=== PATIENT | female | born 1945 | race Caucasian/White ===

== ENCOUNTER → 2016-07-13 | Outpatient (CLI) | payer MEDICARE, OTHER ==
--- NOTE | 2016-07-14 10:17 | MM ---
Reason for exam: screening (asymptomatic). Last mammogram was performed 1 year ago. History: Patient is postmenopausal. Physical Findings: A clinical breast exam by your physician is recommended on an annual basis and results should be correlated with mammographic findings. MG 3D Screening Mammo W/Cad Bilateral CC and MLO view(s) were taken. Prior study comparison: July 12, 2015, bilateral MG screening mammo w CAD. June 20, 2014, left breast MG work up mamm w CAD LT. June 13, 2014, bilateral MG screening mammo w CAD. May 24, 2013, bilateral digital screening mammo w/CAD. February 11, 2012, bilateral digital screening mammo w/CAD. There are scattered fibroglandular densities. No significant changes when compared with prior studies. ASSESSMENT: Benign, BI-RAD 2 RECOMMENDATION: Routine screening mammogram of both breasts in 1 year.
== END | disposition home or self-care (01) ==
LOC: RADMAMWWP 08:03
PROVIDERS: ATTEND Family Medicine
DX: Z12.31 Encounter for screening mammogram for malignant neoplasm of breast (principal)
CPT/HCPCS: 77063; G0202

== ENCOUNTER → 2017-07-22 | Outpatient (CLI) | payer MEDICARE, OTHER ==
--- NOTE | 2017-07-23 08:20 | MM ---
Reason for exam: screening (asymptomatic). Last mammogram was performed 1 year ago. History: Patient is postmenopausal. Physical Findings: A clinical breast exam by your physician is recommended on an annual basis and results should be correlated with mammographic findings. MG 3D Screening Mammo W/Cad Bilateral CC and MLO view(s) were taken. Prior study comparison: July 13, 2016, bilateral MG 3d screening mammo w/cad. July 12, 2015, bilateral MG screening mammo w CAD. There are scattered fibroglandular densities. There is no discrete abnormality. No significant changes when compared with prior studies. ASSESSMENT: Negative, BI-RAD 1 RECOMMENDATION: Routine screening mammogram of both breasts in 1 year.
== END | disposition home or self-care (01) ==
LOC: RADMAMWWP 13:15
PROVIDERS: ATTEND Family Medicine
DX: Z12.31 Encounter for screening mammogram for malignant neoplasm of breast (principal)
CPT/HCPCS: 77063; 77067

== ENCOUNTER → 2017-12-01 | Outpatient (CLI) | payer MEDICARE, OTHER ==
[2017-12-01 12:02] LABS: Blood Urea Nitrogen 13 mg/dL (7-17)
--- NOTE | 2017-12-01 13:51 | CT ---
EXAMINATION TYPE: CT chest w con DATE OF EXAM: 12/01/2017 COMPARISON: None at this institution. HISTORY: Nodule CT DLP: 516 mGycm. Automated Exposure Control for Dose Reduction was Utilized. TECHNIQUE: CT scan of the thorax is performed following with IV Contrast, patient injected with 100 mL of Isovue 300. FINDINGS: LUNGS: There is bibasilar moderate linear scarring and/or atelectasis. There are scattered micronodul es and nodular densities bilaterally in the lower lungs. There is 7 x 4 mm right midlung groundglass nodule axial image 31 and smaller 6 x 4 mm groundglass nodule axial image 30 which are largest identi fied nodules. There is no pleural effusion or pneumothorax seen bilaterally. The tracheobronchial tr ee is patent. MEDIASTINUM: There are no greater than 1 cm hilar or mediastinal lymph nodes. No cardiomegaly or pe ricardial effusion is seen. Stable small hiatal hernia. OTHER: Hemangioma L1 vertebra is noted there is additional hemangioma involving the T5 vertebra. Slig ht S-shaped scoliosis with mild to moderate multilevel spurring is present. IMPRESSION: Small bibasilar nodules most prominent right middle lobe as detailed above. Correlation w ith old outside CT advised to assess interval change and follow-up.
== END | disposition home or self-care (01) ==
LOC: RADCTMAIN 11:11
PROVIDERS: ATTEND Family Medicine
DX: R91.8 Other nonspecific abnormal finding of lung field (principal)
CPT/HCPCS: 82565; 84520; 71260; 36415; Q9967

== ENCOUNTER → 2017-12-25 | Outpatient (CLI) | payer MEDICARE, OTHER ==
--- NOTE | 2017-12-27 20:57 | PE ---
EXAMINATION TYPE: PET CT fusion skull to thigh DATE OF EXAM: 12/25/2017 CLINICAL HISTORY: 72-year-old female initial staging lung cancer, diagnosed 12/01/2017. TECHNIQUE: Following the intravenous administration of 12.32 mCi of F-18 FDG, whole body images are performed from the skull base to the midthigh. Images are reviewed on the computer in the coronal, axial, and sagittal planes. Reconstructed rotating images are created on independent workstation and reviewed on the computer. A localization and attenuation correction CT is performed in conjunction with the PET scan. Glucose level: 102 mg/dL CTDI: 5.04 mGy DLP: 388.98 mGy-cm COMPARISON: Correlation CT chest 12/01/2017. FINDINGS: PET: Physiologic activity along the region of the lingual tonsils. Otherwise, physiologic FDG uptake in th e neck. Pulmonary nodules along the minor fissure measuring up to 5 mm. These are too small for adequate PET characterization. Micronodules previously seen at the lung bases measuring 1 or 2 mm are not appreciable on the present attenuation correction CT images. Average liver SUV 2.5. Variable mild bowel uptake. Otherwise, physiologic FDG uptake within the abdomen and pelvis. Variable mild FDG uptake throughout the spine such as L4-L5 where there is a grade 1, nearly grade 2 anterolisthesis suggestive of degenerative uptake. ATTENUATION CORRECTION CT: Visualized paranasal sinuses are clear. No cervical lymphadenopathy identified. Heart upper limits of normal in size without pericardial effusion. Upper descending thoracic aorta b orderline ectatic at 3.0 cm. Conventional arch vessel branching anatomy. Mediastinal lymph nodes annita ure up to 6 mm in the paratracheal region. No thoracic lymphadenopathy by CT size criteria. Enlarged main right and left pulmonary arteries are 2.9 cm each suggesting underlying pulmonary arterial hyper tension. No consolidation or pleural effusion. There is prominent dependent atelectasis in the lungs with ret icular densities in the lower lungs and mild groundglass that could represent some interstitial fibro sis. Small hiatal hernia. Bilateral extrarenal pelves. No dilated small bowel, free fluid, or free air. M oderate stool burden. Left-sided colonic diverticulosis greatest in the sigmoid colon. No pericolonic inflammatory change. Multiple pelvic phleboliths. Circumferential bladder wall thickening may relate to nondistention or c ystitis. Uterus and ovaries are visualized. No abnormal fluid collection in the pelvis or pelvic lymp hadenopathy. IMPRESSION: 1. A couple 5 mm pulmonary nodules along the minor fissure are too small for adequate PET characteriz ation. 6 month follow-up CT recommended to reassess. 2. Micronodules measuring 1 or 2 mm at the lung bases are not appreciable on the current attenuation correction CT. These can also be reassessed at the 6 month follow-up. 3. Pulmonary arterial hypertension, possible fibrotic changes in the lower lungs, small hiatal hernia , left-sided colonic diverticulosis, and circumferential bladder wall thickening which may relate to nondistention or cystitis.
== END | disposition home or self-care (01) ==
LOC: RADPETMAIN 07:54
PROVIDERS: ATTEND Family Medicine
DX: C34.2 Malignant neoplasm of middle lobe, bronchus or lung (principal); R91.8 Other nonspecific abnormal finding of lung field; I27.21 Secondary pulmonary arterial hypertension
CPT/HCPCS: 78815; A9552

== ENCOUNTER → 2018-08-16 | Outpatient (CLI) | payer MEDICARE, OTHER ==
--- NOTE | 2018-08-16 09:10 | CT ---
EXAMINATION TYPE: CT chest w con DATE OF EXAM: 08/16/2018 COMPARISON: 12/01/2017 HISTORY: 72-year-old female localized swelling, mass and lump, abnormal PET Scan TECHNIQUE: Contiguous axial scanning of the chest after the administration of 100 mL of Isovue 300. Coronal/sagittal reconstructions performed. CT DLP: 289.1mGycm. Automatic exposure control utilized for a dose reduction. FINDINGS: Heart normal size without pericardial effusion. Mild ectasia upper descending thoracic aorta and 2.7 cm. Conventional arch vessel branching anatomy. Large caliber to the main right and left pulmonary arteries and 3.0 and 2.5 cm, respectively, suggest ing underlying pulmonary arterial hypertension. No thoracic lymphadenopathy by CT size criteria. A couple 5 to 6 mm pulmonary nodules along the right minor fissure are unchanged. Reticular and inter stitial changes in the lung bases with minimal bronchiectasis is unchanged. Previously described micr onodules at the lung bases are not as well defined. No consolidation or pleural effusion. Visualized upper abdomen shows no gross abnormality. Bones: Accentuated midthoracic kyphosis with associated mild degenerative disc disease. IMPRESSION: 1. A couple 5 to 6 mm pulmonary nodules along the right minor fissure are unchanged for nearly 9 dustin hs. Additional follow-up can be performed at 15 months which will establish 2 years of stability and help support a benign etiology. 2. Previously seen bibasilar micronodules are not as well-defined. There are basilar interstitial ret iculations and scarring with mild bibasilar bronchiectasis suggesting some underlying interstitial fi brosis. 3. Correlate for underlying pulmonary arterial hypertension.
== END | disposition home or self-care (01) ==
LOC: RADCTMAIN 06:02
PROVIDERS: ATTEND Family Medicine
DX: J47.9 Bronchiectasis, uncomplicated (principal); J98.4 Other disorders of lung; R91.8 Other nonspecific abnormal finding of lung field
CPT/HCPCS: 82565; 84520; 71260; 36415; Q9967

== ENCOUNTER → 2018-11-10 | Outpatient (CLI) | payer MEDICARE, OTHER ==
--- NOTE | 2018-11-11 11:32 | MM ---
Reason for exam: screening (asymptomatic). Last mammogram was performed 1 year and 4 months ago. History: Patient is postmenopausal. Physical Findings: A clinical breast exam by your physician is recommended on an annual basis and results should be correlated with mammographic findings. MG 3D Screening Mammo W/Cad Bilateral CC and MLO view(s) were taken. Prior study comparison: July 22, 2017, bilateral MG 3d screening mammo w/cad. July 13, 2016, bilateral MG 3d screening mammo w/cad. There are scattered fibroglandular densities. There is no discrete abnormality. No significant changes when compared with prior studies. ASSESSMENT: Negative, BI-RAD 1 RECOMMENDATION: Routine screening mammogram of both breasts in 1 year.
== END | disposition home or self-care (01) ==
LOC: RADMAMWWP 09:01
PROVIDERS: ATTEND Family Medicine
DX: Z12.31 Encounter for screening mammogram for malignant neoplasm of breast (principal)
CPT/HCPCS: 77063; 77067

== ENCOUNTER → 2019-11-14 | Outpatient (CLI) | payer MEDICARE, OTHER ==
--- NOTE | 2019-11-15 08:38 | MM ---
Reason for exam: screening (asymptomatic). Last mammogram was performed 1 year ago. History: Patient is postmenopausal. Physical Findings: A clinical breast exam by your physician is recommended on an annual basis and results should be correlated with mammographic findings. MG 3D Screening Mammo W/Cad Bilateral CC and MLO view(s) were taken. Prior study comparison: November 10, 2018, bilateral MG 3d screening mammo w/cad. July 22, 2017, bilateral MG 3d screening mammo w/cad. There are scattered fibroglandular densities. There are benign appearing vascular calcifications in the right breast. There is chronic nodularity in the right breast. There is no discrete abnormality. ASSESSMENT: Benign, BI-RAD 2 RECOMMENDATION: Routine screening mammogram of both breasts in 1 year.
== END | disposition home or self-care (01) ==
LOC: RADMAMWWP 09:02
PROVIDERS: ATTEND Family Medicine
DX: Z12.31 Encounter for screening mammogram for malignant neoplasm of breast (principal)
CPT/HCPCS: 77063; 77067

== ENCOUNTER → 2020-11-27 | Outpatient (CLI) | payer MEDICARE, OTHER ==
--- NOTE | 2020-12-02 13:34 | MM ---
Reason for exam: screening (asymptomatic). Last mammogram was performed 1 year ago. History: Patient is postmenopausal. Physical Findings: A clinical breast exam by your physician is recommended on an annual basis and results should be correlated with mammographic findings. MG 3D Screening Mammo W/Cad Bilateral CC and MLO view(s) were taken. Prior study comparison: November 14, 2019, bilateral MG 3d screening mammo w/cad. November 10, 2018, bilateral MG 3d screening mammo w/cad. There are scattered fibroglandular densities. There is a small chronic nodularity in the left breast. There is no discrete abnormality. ASSESSMENT: Negative, BI-RAD 1 RECOMMENDATION: Routine screening mammogram of both breasts in 1 year.
== END | disposition home or self-care (01) ==
LOC: RADMAMWWP 15:40
PROVIDERS: ATTEND Family Medicine
DX: Z12.31 Encounter for screening mammogram for malignant neoplasm of breast (principal); Z78.0 Asymptomatic menopausal state
CPT/HCPCS: 77063; 77067

== ENCOUNTER → 2021-09-08 | Outpatient (CLI) | payer MEDICARE, OTHER ==
--- NOTE | 2021-09-08 14:34 | US ---
EXAMINATION TYPE: US venous doppler duplex LE LT DATE OF EXAM: 09/08/2021 1:18 PM COMPARISON: NONE CLINICAL HISTORY: 75-year-old female M79.672 PAIN IN LT FOOT, I80.9 PHLEBITIS AND THROMBOPHLEBITIS. L eft lower leg edema, left foot injury SIDE PERFORMED: left TECHNIQUE: The lower extremity deep venous system is examined utilizing real time linear array sonog atilio with graded compression, doppler sonography and color-flow sonography. FINDINGS: VESSELS IMAGED: Common Femoral Vein Deep Femoral Vein Greater Saphenous Vein * Femoral Vein Popliteal Vein Small Saphenous Vein * Proximal Calf Veins Posterior tibial vein (* superficial vessels) Left Leg: no evidence of DVT as visualized IMPRESSION: No evidence for DVT within the left lower extremity imaged from the groin into the calf.
== END | disposition home or self-care (01) ==
LOC: RADUSWWP 12:30
PROVIDERS: ATTEND Orthopaedic Surgery
DX: M79.672 Pain in left foot (principal); I80.9 Phlebitis and thrombophlebitis of unspecified site

== ENCOUNTER → 2022-02-17 | Outpatient (CLI) | payer MEDICARE, OTHER ==
--- NOTE | 2022-02-17 18:58 | MM ---
Reason for Exam: Screening (asymptomatic). Last mammogram was performed 1 year(s) and 2 month(s) ago. Patient History: Menarche at age 13. First Full-Term at age 18. Postmenopausal. Risk Values: Carina 5 year model risk: 1.3%. NCI Lifetime model risk: 2.6%. Prior Study Comparison: 11/10/2018 Bilateral Screening Mammogram, [facility]. 11/14/2019 Bilateral Screening Mammogram, [facility]. 11/27/2020 Bilateral Screening Mammogram, [facility]. Tissue Density: There are scattered fibroglandular densities. Findings: Analyzed By CAD. There is a tiny 4 mm circumscribed nodule that appears low density on the MLO view, not well seen on the prior exam. The characteristics suggest a tiny benign cyst. This can be reassessed in 6 months. Bilateral moles. No significant change otherwise seen. Overall Assessment: Probably benign, BI-RAD 3 Management: Diagnostic Mammogram of the right breast in 6 months. 1. For a suspected tiny 4 mm cyst, not clearly seen previously. 2. Patient should continue monthly self breast exams. 3. This exam should not preclude additional follow-up of suspicious palpable abnormalities. Electronically signed and approved by: Ivan Dominguez M.D. Radiologist
== END | disposition home or self-care (01) ==
LOC: RADMAMWWP 07:07
PROVIDERS: ATTEND Family Medicine
DX: Z12.31 Encounter for screening mammogram for malignant neoplasm of breast (principal)
CPT/HCPCS: 77063; 77067

== ENCOUNTER → 2022-08-18 | Outpatient (CLI) | payer MEDICARE, OTHER ==
--- NOTE | 2022-08-18 12:40 | CA ---
Exercise Stress Test Report Name: Carina Rucker Exam Date: 08/18/2022 09:01 Exam Location: [place] Stress Ht (in): 63 Wt (lb): 183 BSA: 1.86 Ordering Phys: Mary Santillan DO Referring Phys: Elayne Stahl PAC Technologist: Apolinar Bhakta Age: 76 Gender: F : 1945 Procedure CPT: Indications: I20.8 Angina ICD-10 Codes: Patient History: CHEST PAIN, DIFFICULTY IN BREATHING, HTN, ELEVATED CHOLESTEROL LEVELS, FAMILY HX OF HEART DISEASE Medications: REFRESH TEARS, IRBESARTAN, METOPROLOL, LIOTHYRONINE, LEVOTHYROXINE, AMLODIPINE Meds past 24 hrs: Pretest Chest Pain: STRESS TEST Ravi Protocol Exercise Duration (min:sec): 03:[address] Depressions (mm): Angina Score: Fung Score: Resting HR (bpm): 99 Peak HR (bpm): 156 Resting BP (mmHg): 160 / 90 Peak BP (mmHg): 197 / 102 MPHR: 144 Target HR: 122 % MPHR: 108 METS: 4.7 Total Dose: Peak Dose: Atropine: Double Product: 74091 BP Response: Stress Termination: Target HR Stress Symptoms: DIFFICULTY IN BREATHING,JAW/CHEST TIGHTNESS Stress Summary: ECG ANALYSIS Resting ECG: Stress ECG: CONCLUSIONS Average exercise tolerance Normal EKG in response to exercise Dr. Christopher Ferrer MD (Electronically Signed) Final Date: 18 August 2022 12:40
== END | disposition home or self-care (01) ==
LOC: RADNMMAIN 07:54
PROVIDERS: ATTEND Family Medicine
DX: I20.8 Other forms of angina pectoris (principal)
CPT/HCPCS: 93017

== ENCOUNTER → 2022-08-19 | Outpatient (CLI) | payer MEDICARE, OTHER ==
--- NOTE | 2022-08-19 07:52 | MM ---
Reason for Exam: Follow-up at short interval from prior study. Last screening mammogram was performed 6 month(s) ago. Patient History: Menarche at age 13. First Full-Term at age 18. Postmenopausal. Risk Values: Carina 5 year model risk: 1.3%. NCI Lifetime model risk: 2.6%. Prior Study Comparison: 11/14/2019 Bilateral Screening Mammogram, [facility]. 11/27/2020 Bilateral Screening Mammogram, [facility]. 02/17/2022 Bilateral MG 3D screening mammo w/cad, [facility]. Tissue Density: Right: There are scattered fibroglandular densities. Findings: Analyzed By CAD. No new suspicious masses, calcifications or distortions. Overall Assessment: Benign, BI-RAD 2 Management: Screening Mammogram of both breasts in 1 year. A clinical breast exam by your physician is recommended on an annual basis and results should be correlated with mammographic findings. This exam should not preclude additional follow-up of suspicious palpable abnormalities. Results were given to the patient verbally at the time of exam. Electronically signed and approved by: Jacobo Smalls DO
== END | disposition home or self-care (01) ==
LOC: RADMAMWWP 07:16
PROVIDERS: ATTEND Family Medicine
DX: R92.8 Other abnormal and inconclusive findings on diagnostic imaging of breast (principal); Z78.0 Asymptomatic menopausal state
CPT/HCPCS: 77065; G0279; 77061

== ENCOUNTER → 2023-02-18 | Outpatient (CLI) | payer MEDICARE, OTHER ==
--- NOTE | 2023-02-18 10:14 | MM ---
Reason for Exam: Screening (asymptomatic). Last screening mammogram was performed 12 month(s) ago. Patient History: Menarche at age 13. First Full-Term at age 18. Postmenopausal. Risk Values: Carina 5 year model risk: 1.3%. NCI Lifetime model risk: 2.4%. Prior Study Comparison: 07/13/2016 Bilateral Screening Mammogram, [facility]. 07/22/2017 Bilateral Screening Mammogram, [facility]. 11/10/2018 Bilateral Screening Mammogram, [facility]. 11/14/2019 Bilateral Screening Mammogram, [facility]. 11/27/2020 Bilateral Screening Mammogram, [facility]. 02/17/2022 Bilateral MG 3D screening mammo w/cad, [facility]. 08/19/2022 Right MG 3D diag mammo w/cad RT, [facility]. Tissue Density: There are scattered fibroglandular densities. Findings: Analyzed By CAD. There is no suspicious group of microcalcifications or new suspicious mass. Overall Assessment: Negative, BI-RAD 1 Management: Screening Mammogram of both breasts in [address] [facility] will attempt to contact patient to return for supplemental views and ultrasound if indicated. Patient should continue monthly self-breast exams. A clinical breast exam by your physician is recommended on an annual basis. This exam should not preclude additional follow-up of suspicious palpable abnormalities. Note on Carina scores and lifetime risk: 1. A Carina score greater than 3% is considered moderate risk. If this is the case, consider specialist referral to assess eligibility for a risk reducing agent. 2. If overall lifetime risk for the development of breast cancer is 20% or higher, the patient may qualify for future screening with alternating mammogram and breast MRI. Electronically signed and approved by: Jacobo Smalls DO
== END | disposition home or self-care (01) ==
LOC: RADMAMWWP 08:06
PROVIDERS: ATTEND Family Medicine
DX: Z12.31 Encounter for screening mammogram for malignant neoplasm of breast (principal); Z78.0 Asymptomatic menopausal state
CPT/HCPCS: 77063; 77067

== ENCOUNTER → 2024-04-05 | Outpatient (CLI) | payer MEDICARE, OTHER ==
--- NOTE | 2024-04-09 01:34 | MM ---
Reason for Exam: Screening (asymptomatic). Last mammogram was performed 1 year(s) and 2 month(s) ago. Patient History: Menarche at age 13. First Full-Term at age 18. Postmenopausal. Risk Values: Carina 5 year model risk: 1.2%. NCI Lifetime model risk: 2.2%. Prior Study Comparison: 02/17/2022 Bilateral MG 3D screening mammo w/cad, [facility]. 08/19/2022 Right MG 3D diag mammo w/cad RT, [facility]. 02/18/2023 Bilateral MG 3D screening mammo w/cad, [facility]. Tissue Density: There are scattered areas of fibroglandular density. Findings: Analyzed By CAD. The pattern is symmetrical. Benign vascular calcifications within the right breast. Moles are marked on bilateral breasts. No suspicious groups of microcalcifications, spiculated or lobular masses, architectural distortion or other secondary signs of malignancy are mammographically apparent. Overall Assessment: Benign, BI-RAD 2 Management: Screening Mammogram of both breasts in 1 year. A negative mammogram report should not preclude additional follow up of suspicious palpable abnormalities. Patient should continue monthly self breast exam. A clinical breast exam by your physician is recommended on an annual basis and results should be correlated with mammographic findings. Note on Carina scores and lifetime risk: 1. A Carina score greater than 3% is considered moderate risk. If this is the case, consider specialist referral to assess eligibility for a risk reducing agent. 2. If overall lifetime risk for the development of breast cancer is 20% or higher, the patient may qualify for future screening with alternating mammogram and breast MRI. [facility], , 04/09/2024 1:31 AM. Electronically signed and approved by: Terrell Mathew D.O. Radiologis
== END | disposition home or self-care (01) ==
LOC: RADMAMWWP 07:05
PROVIDERS: ATTEND Family Medicine
DX: Z12.31 Encounter for screening mammogram for malignant neoplasm of breast (principal); R92.323 Mammographic fibroglandular density, bilateral breasts; Z78.0 Asymptomatic menopausal state
CPT/HCPCS: 77063; 77067